=== PATIENT | female | born 1990 | race African-American/Black ===

== ENCOUNTER 2018-11-01 05:43 | Emergency (ER) | payer OTHER ==
[~2018-11-01] VITALS: Ht 162.6 cm; Wt 90.7 kg
[2018-11-01 06:10] LABS: URINE BILIRUBIN NEGATIVE (Negative); URINE BLOOD NEGATIVE (Negative); URINE CLARITY CLEAR; URINE COLOR YELLOW; URINE GLUCOSE-RANDOM NEGATIVE (Negative); URINE KETONES NEGATIVE (Negative); URINE LEUKOCYTES-REFLEX NEGATIVE (Negative); URINE NITRITE-REFLEX NEGATIVE (Negative); URINE PROTEIN NEGATIVE (Negative); URINE SPECIFIC GRAVITY <= 1.005 (1.005-1.030); URINE UROBILINOGEN 0.2 E.U./dl (0.2-1.0)
[2018-11-01 06:16] LABS: ABSOLUTE EOSINOPHILS 0.2 thou/uL (0.0-0.7); ABSOLUTE MONOCYTES 0.5 thou/uL (0.0-1.2); ABSOLUTE NEUTROPHILS 5.9 thou/uL (1.6-8.1); BASOPHILS 0.5 %; EOSINOPHILS 2.2 %; HEMATOCRIT 34.9 % (37.0-47.0); HEMOGLOBIN 11.1 gm/dL (12.0-15.0); LYMPHOCYTES 23.1 %; MCH 23.6 pg (26.0-34.0); MCHC 31.9 g/dL (28.0-37.0); MCV 74.1 fL (80.0-100.0); MONOCYTES 5.6 %; MPV 8.5 fl. (7.2-11.1); NUCLEATED RBCS 0 /100WBC; PLATELET COUNT* 381 thou/uL (150-400); POLYS 68.6 %; RBC 4.71 mil/uL (4.20-5.00); RDW-CV 17.8 % (10.5-14.5); WBC 8.6 thou/uL (4.0-11.0)
[2018-11-01 06:20] LABS: CALCIUM 9.2 mg/dL (8.5-10.1); CREATININE 0.8 mg/dL (0.6-1.3); POTASSIUM 3.4 mmol/L (3.5-5.1)
[2018-11-01 06:24] LABS: TOTAL BILIRUBIN 0.2 mg/dL (<0.1-1.0)
[2018-11-01 07:11] VITALS: BP 140/87
== END 2018-11-01 07:11 | disposition home or self-care (01) ==
LOC: M.ERS 05:43
PROVIDERS: Family Medicine
DX: R10.10 Upper abdominal pain, unspecified (principal)

== ENCOUNTER → 2018-11-16 | Outpatient (CLI) | payer BC | LOC: M.ULTRA 12:23 | DX: N83.8 Other noninflammatory disorders of ovary, fallopian tube and broad ligament (principal); N83.202 Unspecified ovarian cyst, left side; R10.2 Pelvic and perineal pain ==